=== PATIENT | male | born 1990 | race Caucasian/White ===

== ENCOUNTER → 2016-09-21 | Outpatient (REF) ==
[~2016-09-21] MED LIST: AMOXICILLIN 50500 MG PO; AMOXICILLIN 8751 TAB PO; ANTIVERT 25MG25 MG PO; NO HOME MEDICATIONS; NORCO 325 MG-51 TAB PO; PHENERGAN 25 TA25 MG PO; VALIUM 5MG T5 MG/TAB PO; XANAX 0.5MG0.5 MG PO
== END ==
LOC: ZLAB.WCH 09:55
DX: Z01.89 Encounter for other specified special examinations (principal)

== ENCOUNTER 2016-10-13 21:43 | Emergency (ER) | payer BC ==
[~2016-10-13] VITALS: Ht 188 cm; Wt 77.3 kg
[~2016-10-13 21:43] MED LIST changes: -AMOXICILLIN 50500 MG PO; -AMOXICILLIN 8751 TAB PO; -ANTIVERT 25MG25 MG PO; -NORCO 325 MG-51 TAB PO; -PHENERGAN 25 TA25 MG PO; -VALIUM 5MG T5 MG/TAB PO; -XANAX 0.5MG0.5 MG PO
[2016-10-13 21:46] VITALS: BP 124/78; PULSE 82; TEMP 98
[2016-10-13] MEDS ORDERED: AMOXICILLIN 50500 MG PO (22:41)
[2016-10-13] MEDS ORDERED: NORCO 325 MG-51 TAB PO (22:41)
== END 2016-10-13 23:02 | disposition home or self-care (01) ==
LOC: COL.ER 21:43
DX: K02.9 Dental caries, unspecified (principal); F17.210 Nicotine dependence, cigarettes, uncomplicated

== ENCOUNTER 2016-10-15 19:22 | Emergency (ER) | payer BC ==
[~2016-10-15] VITALS: Ht 188 cm; Wt 77.3 kg
[~2016-10-15 19:22] MED LIST changes: +AMOXICILLIN 50500 MG PO; +NORCO 325 MG-51 TAB PO
[2016-10-15 19:27] VITALS: BP 140/90; PULSE 94; TEMP 98.6
[2016-10-15] MEDS ORDERED: NORCO 325 MG-51 TAB PO (20:06)
[2016-10-16] MEDS ORDERED: XANAX 0.5MG0.5 MG PO (08:20)
== END 2016-10-15 20:46 | disposition home or self-care (01) ==
LOC: COL.ER 19:22
DX: K02.9 Dental caries, unspecified (principal); F41.9 Anxiety disorder, unspecified; K21.9 Gastro-esophageal reflux disease without esophagitis; F17.210 Nicotine dependence, cigarettes, uncomplicated
CPT/HCPCS: J1885

== ENCOUNTER 2016-10-16 08:10 | Emergency (ER) | payer BC ==
[~2016-10-16] VITALS: Ht 188 cm; Wt 77.3 kg
[2016-10-16 08:13] VITALS: TEMP 97.6
[2016-10-16] MEDS ORDERED: XANAX 0.5MG0.5 MG PO (08:20)
[2016-10-16 08:39] LABS: BASO # 0.1 (0.0-0.2); BASO % 0.7 % (0.0-2.0); EOS # 0.2 (0.0-0.7); EOS % 1.5 % (0-4.0); GRAN # 6.8 (1.4-6.5); GRAN % 65.1 % (42.2-75.2); HEMATOCRIT 44.1 % (42.0-52.0); HEMOGLOBIN 14.8 g/dl (13.5-18.0); LYMPH # 2.4 (1.2-3.4); LYMPH % 22.6 % (20.0-51.0); MEAN CELL VOLUME 88 fl (80.0-100.0); MEAN CORPUSCULAR HEMOGLOBIN 29 pg (27.0-31.0); MEAN CORPUSCULAR HGB CONC 34 g/dl (33.0-37.0); MEAN PLATELET VOLUME 9.4 fl (7.4-10.4); MONO % 9.8 % (1.7-9.3); PLATELET COUNT 256 K/mm3 (130-400); RED BLOOD COUNT 5.03 M/mm3 (4.20-5.60); REDCELL DISTRIBUTION WIDTH-CV 12.5 % (11.5-14.5); WHITE BLOOD COUNT 10.4 K/mm3 (4.8-10.8)
[2016-10-16 08:44] LABS: PH 6 (5-8); SQUAMOUS EPITHELIAL None Seen /hpf; URINE APPEARANCE Clear; URINE BACTERIA None Seen /hpf; URINE BILIRUBIN Negative (NEGATIVE); URINE BLOOD 2+ (NEGATIVE); URINE COLOR Straw; URINE GLUCOSE Negative (NEGATIVE); URINE KETONE Negative (NEGATIVE); URINE RBC 20-50 /hpf; URINE UROBILINOGEN Negative (NEGATIVE); URINE WBC 0-2 /hpf
[2016-10-16 08:57] LABS: ADJUSTED CALCIUM 9.8 mg/dL (8.4-10.2); ALANINE AMINOTRANSFERASE 27 U/L (21-72); ALBUMIN 4.4 gm/dL (3.5-5.0); ALKALINE PHOSPHATASE 63 U/L (50-136); ANION GAP 15 mmol/L (7-16); BILIRUBIN,TOTAL 1.3 mg/dL (0.0-1.0); BLOOD UREA NITROGEN 16 mg/dL (9-20); CALCIUM 10.1 mg/dL (8.4-10.2); CARBON DIOXIDE 24 mmol/L (22-30); CHLORIDE 104 mmol/L (98-107); CREATININE, serum 0.99 mg/dL (0.66-1.25); GLUCOSE 105 mg/dL (74-106); LIPASE 47 U/L (23-300); POTASSIUM 3.6 mmol/L (3.4-5.0); SODIUM 143 mmol/L (137-145); TOTAL PROTEIN 7.4 gm/dL (6.4-8.2)
[2016-10-16 09:16] LABS: C-REACTIVE PROTEIN < 0.5 mg/dL (0.0-0.9)
[2016-10-16 10:31] VITALS: BP 117/77; PULSE 60
== END 2016-10-16 10:28 | disposition home or self-care (01) ==
LOC: COL.ER 08:10
PROVIDERS: Emergency Medicine
DX: R31.9 Hematuria, unspecified (principal); R10.9 Unspecified abdominal pain; K21.9 Gastro-esophageal reflux disease without esophagitis; F41.9 Anxiety disorder, unspecified; F17.210 Nicotine dependence, cigarettes, uncomplicated; Z90.89 Acquired absence of other organs
CPT/HCPCS: J1885; J2405; J7030

== ENCOUNTER 2016-12-05 23:27 | Emergency (ER) | payer BC ==
[~2016-12-05] VITALS: Ht 185.4 cm; Wt 77.3 kg
[~2016-12-05 23:27] MED LIST changes: +XANAX 0.5MG0.5 MG PO
[2016-12-05 23:28] VITALS: TEMP 98.7
[2016-12-06 00:11] LABS: BASO # 0.1 (0.0-0.2); BASO % 0.6 % (0.0-2.0); EOS # 0.2 (0.0-0.7); EOS % 1.8 % (0-4.0); GRAN # 8.5 (1.4-6.5); GRAN % 68.3 % (42.2-75.2); HEMATOCRIT 44.4 % (42.0-52.0); HEMOGLOBIN 15.1 g/dl (13.5-18.0); LYMPH # 2.5 (1.2-3.4); MEAN CELL VOLUME 87 fl (80.0-100.0); MEAN CORPUSCULAR HEMOGLOBIN 30 pg (27.0-31.0); MEAN CORPUSCULAR HGB CONC 34 g/dl (33.0-37.0); MEAN PLATELET VOLUME 9.3 fl (7.4-10.4); MONO # 1.1 (0.1-0.6); MONO % 8.9 % (1.7-9.3); PLATELET COUNT 272 K/mm3 (130-400); RED BLOOD COUNT 5.08 M/mm3 (4.20-5.60); REDCELL DISTRIBUTION WIDTH-CV 12.4 % (11.5-14.5); WHITE BLOOD COUNT 12.4 K/mm3 (4.8-10.8)
[2016-12-06 00:22] LABS: ADJUSTED CALCIUM 9.1 mg/dL (8.4-10.2); ALBUMIN 4.7 gm/dL (3.5-5.0); BILIRUBIN,TOTAL 0.7 mg/dL (0.0-1.0); CALCIUM 9.7 mg/dL (8.4-10.2); CREATININE, serum 0.8 mg/dL (0.66-1.25); POTASSIUM 3.8 mmol/L (3.4-5.0); TOTAL PROTEIN 7.8 gm/dL (6.4-8.2)
[2016-12-06] MEDS ORDERED: ANTIVERT 25MG25 MG PO (01:05)
[2016-12-06] MEDS ORDERED: AMOXICILLIN 8751 TAB PO (01:05)
[2016-12-06] MEDS ORDERED: VALIUM 5MG T5 MG/TAB PO (01:05)
[2016-12-06] MEDS ORDERED: PHENERGAN 25 TA25 MG PO (01:05)
[2016-12-06 01:29] VITALS: BP 124/68; PULSE 62
== END 2016-12-06 01:30 | disposition home or self-care (01) ==
LOC: COL.ER 23:27
PROVIDERS: Emergency Medicine
DX: R42 Dizziness and giddiness (principal); J32.9 Chronic sinusitis, unspecified; F17.200 Nicotine dependence, unspecified, uncomplicated; F41.9 Anxiety disorder, unspecified; R51 Headache
CPT/HCPCS: J2550; J3360; J7030

== ENCOUNTER 2016-12-31 00:39 | Emergency (ER) | payer BC ==
[~2016-12-31] VITALS: Ht 185.4 cm; Wt 79.5 kg
[~2016-12-31 00:39] MED LIST changes: +AMOXICILLIN 8751 TAB PO; +ANTIVERT 25MG25 MG PO; +PHENERGAN 25 TA25 MG PO; +VALIUM 5MG T5 MG/TAB PO
[2016-12-31 00:40] VITALS: TEMP 98
[2016-12-31 01:23] LABS: HEMATOCRIT 40.9 % (42.0-52.0); HEMOGLOBIN 13.8 g/dl (13.5-18.0)
[2016-12-31 01:33] LABS: CREATININE, serum 0.67 mg/dL (0.66-1.25); POTASSIUM 3.5 mmol/L (3.4-5.0)
[2016-12-31 02:44] VITALS: BP 113/69; PULSE 63
== END 2016-12-31 02:46 | disposition home or self-care (01) ==
LOC: COL.ER 00:39
PROVIDERS: Emergency Medicine
DX: R00.2 Palpitations (principal); F41.9 Anxiety disorder, unspecified; F17.210 Nicotine dependence, cigarettes, uncomplicated
CPT/HCPCS: J7030

== ENCOUNTER 2017-03-08 16:12 | Emergency (ER) | payer MEDICAID ==
[~2017-03-08] VITALS: Ht 188 cm; Wt 79.5 kg
[2017-03-08 16:16] VITALS: TEMP 98.4
[2017-03-08] MEDS ORDERED: ZANTAC 150150 MG PO (16:18)
[2017-03-08] MEDS ORDERED: PRILOSEC 20MG20 MG PO (16:18)
[2017-03-08] MEDS ORDERED: EFFEXOR 75M75 MG/TAB PO (16:21)
[2017-03-08 16:38] LABS: BASO # 0.1 (0.0-0.2); BASO % 0.5 % (0.0-2.0); EOS # 0.1 (0.0-0.7); EOS % 0.9 % (0-4.0); GRAN # 6.4 (1.4-6.5); GRAN % 68.6 % (42.2-75.2); HEMATOCRIT 44.5 % (42.0-52.0); HEMOGLOBIN 15.2 g/dl (13.5-18.0); LYMPH # 2.1 (1.2-3.4); LYMPH % 22.2 % (20.0-51.0); MEAN CELL VOLUME 87 fl (80.0-100.0); MEAN CORPUSCULAR HEMOGLOBIN 30 pg (27.0-31.0); MEAN CORPUSCULAR HGB CONC 34 g/dl (33.0-37.0); MEAN PLATELET VOLUME 9.3 fl (7.4-10.4); MONO # 0.7 (0.1-0.6); MONO % 7.6 % (1.7-9.3); PLATELET COUNT 302 K/mm3 (130-400); RED BLOOD COUNT 5.09 M/mm3 (4.20-5.60); WHITE BLOOD COUNT 9.3 K/mm3 (4.8-10.8)
[2017-03-08 17:02] LABS: ADJUSTED CALCIUM 9.5 mg/dL (8.4-10.2); ALBUMIN 4.4 gm/dL (3.5-5.0); BILIRUBIN,TOTAL 0.7 mg/dL (0.0-1.0); CALCIUM 9.8 mg/dL (8.4-10.2); CREATININE, serum 0.88 mg/dL (0.66-1.25); TOTAL PROTEIN 7.6 gm/dL (6.4-8.2)
[2017-03-08] MEDS ORDERED: PHENERGAN 25 TA25 MG PO (18:02)
[2017-03-08 18:23] VITALS: BP 114/73; PULSE 89
[2017-03-08] MEDS ORDERED: XANAX 0.5MG0.5 MG PO (18:23)
== END 2017-03-08 18:34 | disposition home or self-care (01) ==
LOC: COL.ER 16:12
PROVIDERS: Emergency Medicine
DX: R07.9 Chest pain, unspecified (principal); R00.2 Palpitations; R10.13 Epigastric pain

== ENCOUNTER 2017-03-13 15:43 | Emergency (ER) | payer MEDICAID ==
[~2017-03-13] VITALS: Ht 188 cm; Wt 79.5 kg
[~2017-03-13 15:43] MED LIST changes: +EFFEXOR 75M75 MG/TAB PO; +PRILOSEC 20MG20 MG PO; +ZANTAC 150150 MG PO
[2017-03-13 15:44] VITALS: BP 121/78; PULSE 86; TEMP 98.9
== END 2017-03-13 16:40 | disposition home or self-care (01) ==
LOC: COL.ER 15:43
DX: R10.13 Epigastric pain (principal); K21.9 Gastro-esophageal reflux disease without esophagitis; F17.210 Nicotine dependence, cigarettes, uncomplicated; F41.9 Anxiety disorder, unspecified; Z90.89 Acquired absence of other organs

== ENCOUNTER 2017-09-30 03:50 | Emergency (ER) | payer MEDICAID ==
[~2017-09-30] VITALS: Ht 188 cm; Wt 82.7 kg
[2017-09-30 03:54] VITALS: TEMP 97.4
[2017-09-30] MEDS ORDERED: PAXIL 20MG20 MG PO (03:58)
[2017-09-30 04:14] LABS: BASO # 0.1 (0.0-0.2); EOS # 0.3 (0.0-0.7); EOS % 3.6 % (0-4.0); GRAN % 43.4 % (42.2-75.2); HEMATOCRIT 45.2 % (42.0-52.0); HEMOGLOBIN 15.3 g/dl (13.5-18.0); LYMPH # 3.9 (1.2-3.4); LYMPH % 42.3 % (20.0-51.0); MEAN CELL VOLUME 87 fl (80.0-100.0); MEAN CORPUSCULAR HEMOGLOBIN 30 pg (27.0-31.0); MEAN CORPUSCULAR HGB CONC 34 g/dl (33.0-37.0); MEAN PLATELET VOLUME 9.3 fl (7.4-10.4); MONO # 0.9 (0.1-0.6); MONO % 9.5 % (1.7-9.3); PLATELET COUNT 300 K/mm3 (130-400); RED BLOOD COUNT 5.19 M/mm3 (4.20-5.60); REDCELL DISTRIBUTION WIDTH-CV 12.4 % (11.5-14.5)
[2017-09-30 04:34] LABS: ALBUMIN 4.5 gm/dL (3.5-5.0); BILIRUBIN,TOTAL 0.6 mg/dL (0.0-1.0); CALCIUM 10.7 mg/dL (8.4-10.2); CREATININE, serum 0.75 mg/dL (0.66-1.25); POTASSIUM 4.2 mmol/L (3.4-5.0); TOTAL PROTEIN 8.8 gm/dL (6.4-8.2)
[2017-09-30 04:41] LABS: MAGNESIUM 1.9 mg/dL (1.6-2.3)
[2017-09-30 05:44] VITALS: BP 119/80; PULSE 63
== END 2017-09-30 05:51 | disposition home or self-care (01) ==
LOC: COL.ER 03:50
PROVIDERS: Emergency Medicine
DX: F41.9 Anxiety disorder, unspecified (principal); R00.2 Palpitations; F17.210 Nicotine dependence, cigarettes, uncomplicated; Z90.89 Acquired absence of other organs
CPT/HCPCS: J2060; J7030

== ENCOUNTER 2020-02-28 11:47 | Emergency (ER) | payer SELFPAY ==
[~2020-02-28] VITALS: Ht 188 cm; Wt 77.3 kg
[~2020-02-28 11:47] MED LIST changes: +PAXIL 20MG20 MG PO; +ZOFRAN ODT4 MG PO
[2020-02-28 12:30] LABS: BASO # 0.1 (0.0-0.2); BASO % 0.7 % (0.0-2.0); EOS # 0.3 (0.0-0.7); EOS % 2.8 % (0-4.0); GRAN # 5.1 (1.4-6.5); GRAN % 50.6 % (42.2-75.2); HEMATOCRIT 50.6 % (42.0-52.0); HEMOGLOBIN 16.9 g/dl (13.5-18.0); LYMPH # 3.7 (1.2-3.4); LYMPH % 36.8 % (20.0-51.0); MEAN CELL VOLUME 88 fl (80.0-100.0); MEAN CORPUSCULAR HEMOGLOBIN 29 pg (27.0-31.0); MEAN CORPUSCULAR HGB CONC 33 g/dl (33.0-37.0); MEAN PLATELET VOLUME 9.2 fl (7.4-10.4); MONO # 0.9 (0.1-0.6); MONO % 8.8 % (1.7-9.3); PLATELET COUNT 330 K/mm3 (130-400); RED BLOOD COUNT 5.77 M/mm3 (4.20-5.60); REDCELL DISTRIBUTION WIDTH-CV 12.1 % (11.5-14.5)
[2020-02-28 12:42] LABS: ALBUMIN 4.7 gm/dL (3.5-5.0); CALCIUM 9.5 mg/dL (8.4-10.2); CREATININE, serum 0.83 (0.66-1.25); MAGNESIUM 1.9 mg/dL (1.6-2.3); POTASSIUM 3.9 mmol/L (3.4-5.0); TOTAL PROTEIN 8.1 gm/dL (6.4-8.2)
[2020-02-28] MEDS ORDERED: ZOFRAN ODT4 MG PO ×2 (16:05)
[2020-02-28] MEDS ORDERED: PROTONIX 40MG T40 MG PO ×2 (16:05)
[2020-02-28] MEDS ORDERED: PREVACID 30MG30 M1 PO (16:06)
[2020-02-28] MEDS ORDERED: PHENERGAN 25 TA25 MG PO (16:06)
[2020-02-28 17:12] VITALS: BP 122/74; PULSE 85; TEMP 98.1
== END 2020-02-28 16:45 | disposition home or self-care (01) ==
LOC: COL.ER 11:47
PROVIDERS: Emergency Medicine
DX: K29.70 Gastritis, unspecified, without bleeding (principal); F17.210 Nicotine dependence, cigarettes, uncomplicated; Z90.49 Acquired absence of other specified parts of digestive tract
CPT/HCPCS: C9113; J2405; J2550; J7030

== ENCOUNTER 2020-05-29 08:46 | Emergency (ER) | payer BC ==
[~2020-05-29] VITALS: Ht 188 cm; Wt 79.5 kg
[~2020-05-29 08:46] MED LIST changes: +PREVACID 30MG30 M1 PO; +PROTONIX 40MG T40 MG PO
[2020-05-29 08:49] VITALS: TEMP 98.4
[2020-05-29 09:41] LABS: BASO # 0.1 (0.0-0.2); BASO % 0.7 % (0.0-2.0); EOS # 0.2 (0.0-0.7); EOS % 1.7 % (0-4.0); GRAN # 7.2 (1.4-6.5); GRAN % 67.3 % (42.2-75.2); HEMATOCRIT 46.9 % (42.0-52.0); LYMPH # 2.3 (1.2-3.4); LYMPH % 21.7 % (20.0-51.0); MEAN CELL VOLUME 87 fl (80.0-100.0); MEAN CORPUSCULAR HEMOGLOBIN 30 pg (27.0-31.0); MEAN CORPUSCULAR HGB CONC 34 g/dl (33.0-37.0); MEAN PLATELET VOLUME 9.7 fl (7.4-10.4); MONO # 0.9 (0.1-0.6); MONO % 8.2 % (1.7-9.3); PLATELET COUNT 319 K/mm3 (130-400); RED BLOOD COUNT 5.39 M/mm3 (4.20-5.60); REDCELL DISTRIBUTION WIDTH-CV 12.4 % (11.5-14.5)
[2020-05-29 10:32] LABS: ALANINE AMINOTRANSFERASE 28 U/L (4-49); ALBUMIN 3.7 gm/dL (3.5-5.0); ALKALINE PHOSPHATASE 75 U/L (50-136); ANION GAP 4 mmol/L (7-16); AST,SGOT 25 U/L (15-37); BILIRUBIN,TOTAL 0.3 mg/dL (0.0-1.0); BLOOD UREA NITROGEN 13 mg/dL (9-20); CALCIUM 8.9 mg/dL (8.4-10.2); CARBON DIOXIDE 27 mmol/L (22-30); CHLORIDE 107 mmol/L (98-107); GLUCOSE 97 mg/dL (74-106); LIPASE 70 U/L (23-300); POTASSIUM 4.1 mmol/L (3.4-5.0); SODIUM 137 mmol/L (137-145); TOTAL PROTEIN 6.4 gm/dL (6.4-8.2)
[2020-05-29] MEDS ORDERED: TYLENOL 325MG325 MG PO (10:39)
[2020-05-29] MEDS ORDERED: ZOFRAN ODT4 MG PO (10:39)
[2020-05-29 10:45] LABS: TROPONIN-I < 0.012 ng/mL (0.000-0.035)
[2020-05-29 10:51] VITALS: BP 116/79; PULSE 79
== END 2020-05-29 10:59 | disposition home or self-care (01) ==
LOC: COL.ER 08:46
PROVIDERS: Emergency Medicine
DX: R11.2 Nausea with vomiting, unspecified (principal); K21.9 Gastro-esophageal reflux disease without esophagitis; F17.210 Nicotine dependence, cigarettes, uncomplicated; Z90.49 Acquired absence of other specified parts of digestive tract
CPT/HCPCS: J2405; J7030

== ENCOUNTER 2020-07-21 17:49 | Emergency (ER) | payer SELFPAY ==
[~2020-07-21] VITALS: Ht 188 cm; Wt 86.4 kg
[~2020-07-21 17:49] MED LIST changes: +TYLENOL 325MG325 MG PO
[2020-07-21 17:59] VITALS: TEMP 98.7
[2020-07-21 19:33] LABS: BASO # 0.1 (0.0-0.2); BASO % 0.4 % (0.0-2.0); EOS # 0.2 (0.0-0.7); EOS % 1.7 % (0-4.0); GRAN # 9.9 (1.4-6.5); GRAN % 73.6 % (42.2-75.2); HEMATOCRIT 47.6 % (42.0-52.0); HEMOGLOBIN 16.1 g/dl (13.5-18.0); LYMPH # 2.2 (1.2-3.4); LYMPH % 16.2 % (20.0-51.0); MEAN CELL VOLUME 87 fl (80.0-100.0); MEAN CORPUSCULAR HEMOGLOBIN 29 pg (27.0-31.0); MEAN CORPUSCULAR HGB CONC 34 g/dl (33.0-37.0); MEAN PLATELET VOLUME 9.2 fl (7.4-10.4); MONO % 7.7 % (1.7-9.3); PLATELET COUNT 284 K/mm3 (130-400); RED BLOOD COUNT 5.47 M/mm3 (4.20-5.60); REDCELL DISTRIBUTION WIDTH-CV 12.2 % (11.5-14.5)
[2020-07-21 19:43] LABS: ALANINE AMINOTRANSFERASE 33 U/L (4-49); ALBUMIN 4.1 gm/dL (3.5-5.0); ALKALINE PHOSPHATASE 68 U/L (50-136); ANION GAP 7 mmol/L (7-16); AST,SGOT 28 U/L (15-37); BILIRUBIN,TOTAL 0.5 mg/dL (0.0-1.0); BLOOD UREA NITROGEN 11 mg/dL (9-20); CALCIUM 9.6 mg/dL (8.4-10.2); CARBON DIOXIDE 27 mmol/L (22-30); CHLORIDE 105 mmol/L (98-107); CREATININE, serum 0.82 (0.66-1.25); GLUCOSE 98 mg/dL (74-106); POTASSIUM 4.1 mmol/L (3.4-5.0); SODIUM 139 mmol/L (137-145); TOTAL PROTEIN 6.8 gm/dL (6.4-8.2)
[2020-07-21 20:00] LABS: TROPONIN-I < 0.012 ng/mL (0.000-0.035)
[2020-07-21 20:45] VITALS: BP 117/64; PULSE 75
[2021-03-11] MEDS ORDERED: FLEXERIL 1010 MG/TAB PO (03:57)
== END 2020-07-21 20:45 | disposition home or self-care (01) ==
LOC: COL.ER 17:49
PROVIDERS: Physician Assistant
DX: R06.02 Shortness of breath (principal); K21.9 Gastro-esophageal reflux disease without esophagitis; F17.210 Nicotine dependence, cigarettes, uncomplicated
CPT/HCPCS: J7030

== ENCOUNTER 2020-10-20 19:02 | Emergency (ER) | payer SELFPAY ==
[~2020-10-20] VITALS: Ht 188 cm; Wt 90.9 kg
[2020-10-20 19:54] LABS: BASO # 0.1 (0.0-0.2); EOS # 0.3 (0.0-0.7); EOS % 3.5 % (0-4.0); GRAN # 4.3 (1.4-6.5); GRAN % 53.8 % (42.2-75.2); HEMATOCRIT 48.1 % (42.0-52.0); HEMOGLOBIN 15.9 g/dl (13.5-18.0); LYMPH # 2.7 (1.2-3.4); MEAN CELL VOLUME 88 fl (80.0-100.0); MEAN CORPUSCULAR HEMOGLOBIN 29 pg (27.0-31.0); MEAN CORPUSCULAR HGB CONC 33 g/dl (33.0-37.0); MEAN PLATELET VOLUME 9.4 fl (7.4-10.4); MONO # 0.7 (0.1-0.6); MONO % 8.5 % (1.7-9.3); PLATELET COUNT 322 K/mm3 (130-400); RED BLOOD COUNT 5.49 M/mm3 (4.20-5.60); REDCELL DISTRIBUTION WIDTH-CV 12.3 % (11.5-14.5)
[2020-10-20 20:05] LABS: ALBUMIN 4.3 gm/dL (3.5-5.0); BILIRUBIN,TOTAL 0.3 mg/dL (0.0-1.0); CALCIUM 9.9 mg/dL (8.4-10.2); CREATININE, serum 0.66 (0.66-1.25); POTASSIUM 3.9 mmol/L (3.4-5.0); TOTAL PROTEIN 7.6 gm/dL (6.4-8.2)
[2020-10-20 21:11] LABS: COLLECTION METHOD CLEAN CATCH
[2020-10-20 21:19] LABS: PH 7 (5-8); SQUAMOUS EPITHELIAL 0-2 /hpf; URINE APPEARANCE Clear; URINE BACTERIA Rare /hpf; URINE BILIRUBIN Negative (NEGATIVE); URINE BLOOD Negative (NEGATIVE); URINE COLOR Straw; URINE GLUCOSE Negative (NEGATIVE); URINE KETONE Negative (NEGATIVE); URINE LEUKOCYTE ESTERASE Negative (NEGATIVE); URINE NITRATE Negative (NEGATIVE); URINE PROTEIN(semi-quant) Negative (NEGATIVE); URINE RBC 0-2 /hpf; URINE UROBILINOGEN Negative (NEGATIVE); URINE WBC 0-2 /hpf
[2020-10-20 21:32] LABS: TRICYCLIC ANTIDEPRESS URINE NEGATIVE
[2020-10-20] MEDS ORDERED: PROTONIX 40MG T40 MG PO (21:40)
[2020-10-20] MEDS ORDERED: ZOFRAN 4MG T4 MG/TAB PO (21:40)
[2020-10-20 22:07] VITALS: BP 117/72; PULSE 57; TEMP 97.8
[2021-03-11] MEDS ORDERED: FLEXERIL 1010 MG/TAB PO (03:57)
== END 2020-10-20 22:09 | disposition home or self-care (01) ==
LOC: COL.ER 19:02
PROVIDERS: Nurse Practitioner Primary Care
DX: K29.71 Gastritis, unspecified, with bleeding (principal); K21.9 Gastro-esophageal reflux disease without esophagitis; F17.210 Nicotine dependence, cigarettes, uncomplicated; Z90.49 Acquired absence of other specified parts of digestive tract
CPT/HCPCS: C9113; J2405; J7030

== ENCOUNTER 2020-11-04 23:37 | Emergency (ER) | payer SELFPAY ==
[~2020-11-04] VITALS: Ht 188 cm; Wt 84.1 kg
[~2020-11-04 23:37] MED LIST changes: +ZOFRAN 4MG T4 MG/TAB PO
[2020-11-04 23:51] VITALS: TEMP 97.8
[2020-11-05 00:28] LABS: COLLECTION METHOD CLEAN CATCH
[2020-11-05 00:35] LABS: MUCOUS Present /lpf; PH 7 (5-8); SQUAMOUS EPITHELIAL None Seen /hpf; URINE APPEARANCE Clear; URINE BACTERIA None Seen /hpf; URINE BILIRUBIN Negative (NEGATIVE); URINE BLOOD Negative (NEGATIVE); URINE COLOR Yellow; URINE GLUCOSE Negative (NEGATIVE); URINE KETONE Negative (NEGATIVE); URINE LEUKOCYTE ESTERASE Negative (NEGATIVE); URINE NITRATE Negative (NEGATIVE); URINE PROTEIN(semi-quant) Negative (NEGATIVE); URINE RBC 0-2 /hpf; URINE UROBILINOGEN Negative (NEGATIVE); URINE WBC 0-2 /hpf
[2020-11-05 00:38] LABS: BASO # 0.1 (0.0-0.2); BASO % 0.9 % (0.0-2.0); EOS # 0.2 (0.0-0.7); EOS % 2.3 % (0-4.0); GRAN # 4.6 (1.4-6.5); GRAN % 55.3 % (42.2-75.2); HEMATOCRIT 45.5 % (42.0-52.0); HEMOGLOBIN 15.4 g/dl (13.5-18.0); LYMPH # 2.5 (1.2-3.4); LYMPH % 30.3 % (20.0-51.0); MEAN CELL VOLUME 87 fl (80.0-100.0); MEAN CORPUSCULAR HEMOGLOBIN 29 pg (27.0-31.0); MEAN CORPUSCULAR HGB CONC 34 g/dl (33.0-37.0); MEAN PLATELET VOLUME 9.3 fl (7.4-10.4); MONO # 0.9 (0.1-0.6); MONO % 10.8 % (1.7-9.3); PLATELET COUNT 304 K/mm3 (130-400); RED BLOOD COUNT 5.26 M/mm3 (4.20-5.60); REDCELL DISTRIBUTION WIDTH-CV 12.4 % (11.5-14.5)
[2020-11-05 01:12] LABS: ALBUMIN 3.7 gm/dL (3.5-5.0); BILIRUBIN,TOTAL 0.3 mg/dL (0.0-1.0); CALCIUM 8.8 mg/dL (8.4-10.2); CREATININE, serum 0.79 (0.66-1.25); POTASSIUM 3.6 mmol/L (3.4-5.0); TOTAL PROTEIN 6.6 gm/dL (6.4-8.2)
[2020-11-05 02:00] VITALS: BP 120/74; PULSE 61
[2021-03-11] MEDS ORDERED: FLEXERIL 1010 MG/TAB PO (03:57)
== END 2020-11-05 02:00 | disposition home or self-care (01) ==
LOC: COL.ER 23:37
PROVIDERS: Emergency Medicine
DX: R42 Dizziness and giddiness (principal); R11.0 Nausea; R53.1 Weakness; R10.9 Unspecified abdominal pain; K21.9 Gastro-esophageal reflux disease without esophagitis; Z79.899 Other long term (current) drug therapy
CPT/HCPCS: J2405; J2765; J7030

== ENCOUNTER 2020-12-31 17:23 | Emergency (ER) | payer SELFPAY ==
[~2020-12-31] VITALS: Ht 188 cm; Wt 81.8 kg
[2020-12-31 20:36] VITALS: BP 116/64; PULSE 87; TEMP 98.2
[2021-03-11] MEDS ORDERED: FLEXERIL 1010 MG/TAB PO (03:57)
== END 2020-12-31 20:36 | disposition home or self-care (01) ==
LOC: COL.ER 17:23
DX: B34.9 Viral infection, unspecified (principal); K21.9 Gastro-esophageal reflux disease without esophagitis; F17.210 Nicotine dependence, cigarettes, uncomplicated; Z79.899 Other long term (current) drug therapy; Z20.822 Contact with and (suspected) exposure to COVID-19
CPT/HCPCS: J8540

== ENCOUNTER 2021-01-16 00:46 | Emergency (ER) | payer SELFPAY ==
[~2021-01-16] VITALS: Ht 188 cm; Wt 79.5 kg
[2021-01-16 00:52] VITALS: TEMP 97.1
[2021-01-16 01:21] VITALS: BP 138/70; PULSE 62
[2021-01-17] MEDS ORDERED: ATIVAN 1MG T1 MG/TAB PO (08:55)
[2021-03-11] MEDS ORDERED: FLEXERIL 1010 MG/TAB PO (03:57)
== END 2021-01-16 01:21 | disposition home or self-care (01) ==
LOC: COL.ER 00:46
DX: F41.0 Panic disorder [episodic paroxysmal anxiety] (principal); K21.9 Gastro-esophageal reflux disease without esophagitis; F17.210 Nicotine dependence, cigarettes, uncomplicated; Z79.899 Other long term (current) drug therapy

== ENCOUNTER 2021-01-17 06:35 | Emergency (ER) | payer SELFPAY ==
[~2021-01-17] VITALS: Ht 188 cm; Wt 79.5 kg
[2021-01-17 06:41] VITALS: TEMP 97.8
[2021-01-17 06:53] LABS: BASO # 0.1 (0.0-0.2); BASO % 0.8 % (0.0-2.0); EOS # 0.2 (0.0-0.7); GRAN # 5.4 (1.4-6.5); GRAN % 55.3 % (42.2-75.2); HEMATOCRIT 42.3 % (42.0-52.0); HEMOGLOBIN 14.1 g/dl (13.5-18.0); LYMPH # 3.1 (1.2-3.4); LYMPH % 31.9 % (20.0-51.0); MEAN CELL VOLUME 88 fl (80.0-100.0); MEAN CORPUSCULAR HEMOGLOBIN 29 pg (27.0-31.0); MEAN CORPUSCULAR HGB CONC 33 g/dl (33.0-37.0); MEAN PLATELET VOLUME 9.3 fl (7.4-10.4); MONO % 9.9 % (1.7-9.3); PLATELET COUNT 319 K/mm3 (130-400); RED BLOOD COUNT 4.79 M/mm3 (4.20-5.60); REDCELL DISTRIBUTION WIDTH-CV 12.4 % (11.5-14.5)
[2021-01-17 07:08] LABS: ALANINE AMINOTRANSFERASE 18 U/L (4-49); ALBUMIN 3.8 gm/dL (3.5-5.0); ALKALINE PHOSPHATASE 71 U/L (50-136); ANION GAP 6 mmol/L (7-16); AST,SGOT 26 U/L (15-37); BILIRUBIN,TOTAL 0.3 mg/dL (0.0-1.0); BLOOD UREA NITROGEN 12 mg/dL (9-20); CALCIUM 8.3 mg/dL (8.4-10.2); CARBON DIOXIDE 23 mmol/L (22-30); CHLORIDE 110 mmol/L (98-107); CREATININE, serum 0.78 (0.66-1.25); GLUCOSE 92 mg/dL (74-106); POTASSIUM 3.7 mmol/L (3.4-5.0); SODIUM 138 mmol/L (137-145); TOTAL PROTEIN 6.9 gm/dL (6.4-8.2)
[2021-01-17 07:20] LABS: TROPONIN-I < 0.012 ng/mL (0.000-0.035)
[2021-01-17] MEDS ORDERED: ATIVAN 1MG T1 MG/TAB PO (08:55)
[2021-01-17 09:22] VITALS: BP 94/48; PULSE 49
[2021-03-11] MEDS ORDERED: FLEXERIL 1010 MG/TAB PO (03:57)
== END 2021-01-17 09:55 | disposition home or self-care (01) ==
LOC: COL.ER 06:35
PROVIDERS: Emergency Medicine
DX: R00.2 Palpitations (principal); F41.9 Anxiety disorder, unspecified; K21.9 Gastro-esophageal reflux disease without esophagitis; F17.210 Nicotine dependence, cigarettes, uncomplicated; Z91.19 Patient's noncompliance with other medical treatment and regimen; Z79.899 Other long term (current) drug therapy

== ENCOUNTER 2021-02-03 11:45 | Emergency (ER) | payer SELFPAY ==
[~2021-02-03] VITALS: Ht 188 cm; Wt 79.5 kg
[~2021-02-03 11:45] MED LIST changes: +ATIVAN 1MG T1 MG/TAB PO
[2021-02-03 11:59] VITALS: TEMP 98.4
[2021-02-03 12:43] LABS: BASO # 0.1 (0.0-0.2); BASO % 0.9 % (0.0-2.0); EOS # 0.3 (0.0-0.7); EOS % 3.7 % (0-4.0); GRAN # 4.6 (1.4-6.5); GRAN % 50.4 % (42.2-75.2); HEMATOCRIT 46.5 % (42.0-52.0); HEMOGLOBIN 15.5 g/dl (13.5-18.0); LYMPH # 3.1 (1.2-3.4); LYMPH % 34.3 % (20.0-51.0); MEAN CELL VOLUME 88 fl (80.0-100.0); MEAN CORPUSCULAR HEMOGLOBIN 29 pg (27.0-31.0); MEAN CORPUSCULAR HGB CONC 33 g/dl (33.0-37.0); MEAN PLATELET VOLUME 9.2 fl (7.4-10.4); MONO # 0.9 (0.1-0.6); MONO % 10.1 % (1.7-9.3); PLATELET COUNT 304 K/mm3 (130-400); RED BLOOD COUNT 5.29 M/mm3 (4.20-5.60); REDCELL DISTRIBUTION WIDTH-CV 12.6 % (11.5-14.5)
[2021-02-03 12:58] LABS: ALANINE AMINOTRANSFERASE 36 U/L (4-49); ALBUMIN 4.3 gm/dL (3.5-5.0); ALKALINE PHOSPHATASE 69 U/L (50-136); ANION GAP 9 mmol/L (7-16); AST,SGOT 34 U/L (15-37); BILIRUBIN,TOTAL 0.4 mg/dL (0.0-1.0); BLOOD UREA NITROGEN 11 mg/dL (9-20); CALCIUM 9.8 mg/dL (8.4-10.2); CARBON DIOXIDE 23 mmol/L (22-30); CHLORIDE 106 mmol/L (98-107); CREATININE, serum 0.67 (0.66-1.25); GLUCOSE 93 mg/dL (74-106); LIPASE 65 U/L (23-300); SODIUM 139 mmol/L (137-145); TOTAL PROTEIN 7.2 gm/dL (6.4-8.2)
[2021-02-03 13:03] LABS: C-REACTIVE PROTEIN < 0.5 mg/dL (0.0-0.9)
[2021-02-03 13:50] LABS: COLLECTION METHOD CLEAN CATCH
[2021-02-03 14:09] LABS: PH 6 (5-8); SQUAMOUS EPITHELIAL None Seen /hpf; URINE APPEARANCE Clear; URINE BACTERIA None Seen /hpf; URINE BILIRUBIN Negative (NEGATIVE); URINE BLOOD Negative (NEGATIVE); URINE COLOR Yellow; URINE GLUCOSE Negative (NEGATIVE); URINE KETONE Negative (NEGATIVE); URINE LEUKOCYTE ESTERASE Negative (NEGATIVE); URINE NITRATE Negative (NEGATIVE); URINE PROTEIN(semi-quant) Negative (NEGATIVE); URINE RBC 0-2 /hpf; URINE UROBILINOGEN Negative (NEGATIVE)
[2021-02-03] MEDS ORDERED: PROTONIX 40MG T40 MG PO (14:40)
[2021-02-03] MEDS ORDERED: ATIVAN 1MG T1 MG/TAB PO (14:41)
[2021-02-03 15:22] VITALS: BP 124/65; PULSE 72
[2021-03-11] MEDS ORDERED: FLEXERIL 1010 MG/TAB PO (03:57)
== END 2021-02-03 15:23 | disposition home or self-care (01) ==
LOC: COL.ER 11:45
PROVIDERS: Physician Assistant
DX: K29.70 Gastritis, unspecified, without bleeding (principal); K21.9 Gastro-esophageal reflux disease without esophagitis; Z79.899 Other long term (current) drug therapy
CPT/HCPCS: C9113; J2060; J2405; J7030

== ENCOUNTER 2021-02-17 05:34 | Emergency (ER) | payer SELFPAY ==
[~2021-02-17] VITALS: Ht 188 cm; Wt 79.5 kg
[2021-02-17 05:39] VITALS: TEMP 97.1
[2021-02-17 05:54] LABS: BASO # 0.1 (0.0-0.2); BASO % 0.9 % (0.0-2.0); EOS # 0.4 (0.0-0.7); EOS % 3.6 % (0-4.0); GRAN # 5.1 (1.4-6.5); GRAN % 51.9 % (42.2-75.2); HEMOGLOBIN 15.7 g/dl (13.5-18.0); LYMPH # 3.3 (1.2-3.4); LYMPH % 33.6 % (20.0-51.0); MEAN CELL VOLUME 88 fl (80.0-100.0); MEAN CORPUSCULAR HEMOGLOBIN 30 pg (27.0-31.0); MEAN CORPUSCULAR HGB CONC 33 g/dl (33.0-37.0); MONO # 0.9 (0.1-0.6); MONO % 9.6 % (1.7-9.3); PLATELET COUNT 337 K/mm3 (130-400); RED BLOOD COUNT 5.33 M/mm3 (4.20-5.60); REDCELL DISTRIBUTION WIDTH-CV 12.6 % (11.5-14.5)
[2021-02-17 06:17] LABS: COLLECTION METHOD CLEAN CATCH
[2021-02-17 06:19] LABS: ALBUMIN 3.9 gm/dL (3.5-5.0); BILIRUBIN,TOTAL 0.3 mg/dL (0.2-1.2); CALCIUM 8.9 mg/dL (8.4-10.2); CREATININE, serum 0.8 mg/dL (0.72-1.25); POTASSIUM 4.6 mmol/L (3.5-4.5); TOTAL PROTEIN 7.3 gm/dL (6.2-8.1)
[2021-02-17 06:26] LABS: MUCOUS Present /lpf; PH 7 (5-8); SQUAMOUS EPITHELIAL None Seen /hpf; URINE APPEARANCE Clear; URINE BACTERIA None Seen /hpf; URINE BILIRUBIN Negative (NEGATIVE); URINE BLOOD Negative (NEGATIVE); URINE COLOR Yellow; URINE GLUCOSE Negative (NEGATIVE); URINE KETONE Negative (NEGATIVE); URINE LEUKOCYTE ESTERASE Negative (NEGATIVE); URINE NITRATE Negative (NEGATIVE); URINE PROTEIN(semi-quant) Negative (NEGATIVE); URINE RBC None Seen /hpf; URINE UROBILINOGEN >=4.0 mg/dL (NEGATIVE)
[2021-02-17] MEDS ORDERED: BENTYL 20MG20 MG/TAB PO (06:58)
[2021-02-17 08:32] VITALS: BP 113/82; PULSE 68
[2021-03-11] MEDS ORDERED: FLEXERIL 1010 MG/TAB PO (03:57)
== END 2021-02-17 08:36 | disposition home or self-care (01) ==
LOC: COL.ER 05:34
PROVIDERS: Student in an Organized Health Care Education/Training Program
DX: K29.70 Gastritis, unspecified, without bleeding (principal); K21.9 Gastro-esophageal reflux disease without esophagitis; F41.9 Anxiety disorder, unspecified; Z90.49 Acquired absence of other specified parts of digestive tract; Z79.899 Other long term (current) drug therapy
CPT/HCPCS: J2060; J2405; J7030

== ENCOUNTER 2021-03-03 22:21 | Emergency (ER) | payer SELFPAY ==
[~2021-03-03] VITALS: Ht 188 cm; Wt 79.5 kg
[~2021-03-03 22:21] MED LIST changes: +BENTYL 20MG20 MG/TAB PO
[2021-03-03 23:14] LABS: BASO # 0.1 K/mm3 (0.0-0.2); BASO % 0.8 % (0.0-2.0); EOS # 0.5 K/mm3 (0.0-0.7); GRAN # 4.5 K/mm3 (1.4-6.5); GRAN % 42.4 % (42.2-75.2); HEMATOCRIT 49.6 % (42.0-52.0); HEMOGLOBIN 16.7 g/dl (13.5-18.0); LYMPH # 4.5 K/mm3 (1.2-3.4); LYMPH % 41.8 % (20.0-51.0); MEAN CELL VOLUME 88 fl (80.0-100.0); MEAN CORPUSCULAR HEMOGLOBIN 30 pg (27.0-31.0); MEAN CORPUSCULAR HGB CONC 34 g/dl (33.0-37.0); MEAN PLATELET VOLUME 8.9 fl (7.4-10.4); MONO % 9.6 % (1.7-9.3); PLATELET COUNT 362 K/mm3 (130-400); RED BLOOD COUNT 5.66 M/mm3 (4.20-5.60); REDCELL DISTRIBUTION WIDTH-CV 12.2 % (11.5-14.5)
[2021-03-03 23:33] LABS: ALBUMIN 4.3 gm/dL (3.5-5.0); CALCIUM 9.7 mg/dL (8.4-10.2); CREATININE, serum 0.87 mg/dL (0.72-1.25); POTASSIUM 3.5 mmol/L (3.5-4.5); TOTAL PROTEIN 7.7 gm/dL (6.2-8.1)
[2021-03-03 23:52] LABS: BILIRUBIN,TOTAL 0.4 mg/dL (0.2-1.2)
[2021-03-03] MEDS ORDERED: ATARAX 25MG25 MG/TAB PO (23:57)
[2021-03-04 01:15] VITALS: BP 116/68; PULSE 76; TEMP 98.5
[2021-03-11] MEDS ORDERED: FLEXERIL 1010 MG/TAB PO (03:57)
== END 2021-03-04 01:05 | disposition home or self-care (01) ==
LOC: COL.ER 22:21
PROVIDERS: Student in an Organized Health Care Education/Training Program
DX: F41.9 Anxiety disorder, unspecified (principal); K21.9 Gastro-esophageal reflux disease without esophagitis; F17.210 Nicotine dependence, cigarettes, uncomplicated; Z79.899 Other long term (current) drug therapy
CPT/HCPCS: J1885; J2060; J2405; J7030

== ENCOUNTER 2021-03-23 19:15 | Emergency (ER) | payer SELFPAY ==
[~2021-03-23] VITALS: Ht 188 cm; Wt 79.5 kg
[~2021-03-23 19:15] MED LIST changes: +ATARAX 25MG25 MG/TAB PO; +FLEXERIL 1010 MG/TAB PO
[2021-03-23 19:16] VITALS: TEMP 98.6
[2021-03-23 19:55] LABS: BASO # 0.1 K/mm3 (0.0-0.2); BASO % 0.8 % (0.0-2.0); EOS # 0.2 K/mm3 (0.0-0.7); EOS % 2.1 % (0-4.0); GRAN # 6.6 K/mm3 (1.4-6.5); GRAN % 65.7 % (42.2-75.2); HEMOGLOBIN 16.2 g/dl (13.5-18.0); LYMPH # 2.2 K/mm3 (1.2-3.4); LYMPH % 21.9 % (20.0-51.0); MEAN CELL VOLUME 85 fl (80.0-100.0); MEAN CORPUSCULAR HEMOGLOBIN 29 pg (27.0-31.0); MEAN CORPUSCULAR HGB CONC 35 g/dl (33.0-37.0); MONO # 0.9 K/mm3 (0.1-0.6); MONO % 9.2 % (1.7-9.3); PLATELET COUNT 318 K/mm3 (130-400); RED BLOOD COUNT 5.54 M/mm3 (4.20-5.60); REDCELL DISTRIBUTION WIDTH-CV 12.2 % (11.5-14.5)
[2021-03-23 20:14] LABS: ALBUMIN 4.2 gm/dL (3.5-5.0); BILIRUBIN,TOTAL 0.9 mg/dL (0.2-1.2); C-REACTIVE PROTEIN 0.02 mg/dL (0.00-0.50); CALCIUM 9.7 mg/dL (8.4-10.2); CREATININE, serum 0.8 mg/dL (0.72-1.25); POTASSIUM 4.1 mmol/L (3.5-4.5); TOTAL PROTEIN 7.2 gm/dL (6.2-8.1)
[2021-03-23 20:50] LABS: COLLECTION METHOD CLEAN CATCH
[2021-03-23 20:59] LABS: PH 6 (5-8); SQUAMOUS EPITHELIAL None Seen /hpf; URINE APPEARANCE Clear; URINE BACTERIA None Seen /hpf; URINE BILIRUBIN Negative (NEGATIVE); URINE BLOOD Negative (NEGATIVE); URINE COLOR Straw; URINE GLUCOSE Negative (NEGATIVE); URINE KETONE Negative (NEGATIVE); URINE LEUKOCYTE ESTERASE Negative (NEGATIVE); URINE NITRATE Negative (NEGATIVE); URINE PROTEIN(semi-quant) Negative (NEGATIVE); URINE RBC 0-2 /hpf; URINE UROBILINOGEN Negative (NEGATIVE)
[2021-03-23 22:02] VITALS: BP 111/76; PULSE 64
== END 2021-03-23 22:07 | disposition home or self-care (01) ==
LOC: COL.ER 19:15
PROVIDERS: Nurse Practitioner
DX: R53.81 Other malaise (principal); R51.9 Headache, unspecified; R11.0 Nausea; K21.9 Gastro-esophageal reflux disease without esophagitis; F41.9 Anxiety disorder, unspecified; F17.200 Nicotine dependence, unspecified, uncomplicated; Z20.822 Contact with and (suspected) exposure to COVID-19; Z79.899 Other long term (current) drug therapy
CPT/HCPCS: J1885; J2550; J7030

== ENCOUNTER 2021-04-03 03:08 | Emergency (ER) | payer SELFPAY ==
[~2021-04-03] VITALS: Ht 188 cm; Wt 79.5 kg
[2021-04-03] MEDS ORDERED: VISTARIL 2525 MG/CAP PO (03:41)
[2021-04-03 03:52] VITALS: BP 127/84; PULSE 92; TEMP 98.3
== END 2021-04-03 03:52 | disposition home or self-care (01) ==
LOC: COL.ER 03:08
DX: F41.0 Panic disorder [episodic paroxysmal anxiety] (principal); K21.9 Gastro-esophageal reflux disease without esophagitis; F17.210 Nicotine dependence, cigarettes, uncomplicated; Z79.899 Other long term (current) drug therapy

== ENCOUNTER 2021-04-20 04:04 | Emergency (ER) | payer SELFPAY ==
[~2021-04-20] VITALS: Ht 185.4 cm; Wt 84.1 kg
[~2021-04-20 04:04] MED LIST changes: +VISTARIL 2525 MG/CAP PO
[2021-04-20 04:06] VITALS: TEMP 97.9
[2021-04-20 04:34] LABS: BASO # 0.1 K/mm3 (0.0-0.2); EOS # 0.3 K/mm3 (0.0-0.7); EOS % 3.5 % (0-4.0); GRAN # 5.2 K/mm3 (1.4-6.5); GRAN % 53.6 % (42.2-75.2); HEMATOCRIT 46.3 % (42.0-52.0); HEMOGLOBIN 16.1 g/dl (13.5-18.0); LYMPH # 3.1 K/mm3 (1.2-3.4); LYMPH % 31.5 % (20.0-51.0); MEAN CELL VOLUME 85 fl (80.0-100.0); MEAN CORPUSCULAR HEMOGLOBIN 30 pg (27.0-31.0); MEAN CORPUSCULAR HGB CONC 35 g/dl (33.0-37.0); MEAN PLATELET VOLUME 9.2 fl (7.4-10.4); MONO % 10.1 % (1.7-9.3); PLATELET COUNT 332 K/mm3 (130-400); RED BLOOD COUNT 5.45 M/mm3 (4.20-5.60); REDCELL DISTRIBUTION WIDTH-CV 12.4 % (11.5-14.5)
[2021-04-20 04:49] LABS: ALBUMIN 4.2 gm/dL (3.5-5.0); BILIRUBIN,TOTAL 0.6 mg/dL (0.2-1.2); CALCIUM 8.9 mg/dL (8.4-10.2); CREATININE, serum 0.76 mg/dL (0.72-1.25); POTASSIUM 3.6 mmol/L (3.5-4.5); TOTAL PROTEIN 7.5 gm/dL (6.2-8.1)
[2021-04-20 05:22] VITALS: BP 128/75; PULSE 76
== END 2021-04-20 05:22 | disposition home or self-care (01) ==
LOC: COL.ER 04:04
PROVIDERS: Emergency Medicine
DX: R53.81 Other malaise (principal); R11.0 Nausea; F41.9 Anxiety disorder, unspecified; K21.9 Gastro-esophageal reflux disease without esophagitis; Z20.822 Contact with and (suspected) exposure to COVID-19; Z79.899 Other long term (current) drug therapy
CPT/HCPCS: J1885; J2405; J7030